=== PATIENT | male | born 1980 | race Caucasian/White ===

== ENCOUNTER → 2019-06-01 | Outpatient (CLI) | payer BC ==
[~2019-06-01] MED LIST: CETI1TAB61 PO; DEXL60CA PO; FLUO20CA42 PO; IBP800T PO; LEVO5TAB2; MONT10TA21 PO; MV-M1CAP15 PO; OMEG-109 PO; PANT40TA2 PO; SUCR1TAB36 PO
--- NOTE | 2019-06-01 10:11 | Diagnostic Imaging Report ---
PROCEDURE: CT urinary tract, rule out kidney stone. TECHNIQUE: Multiple contiguous axial images were obtained through the abdomen and pelvis without the use of intravenous contrast. Auto Exposure Controls were utilized during the CT exam to meet ALARA standards for radiation dose reduction. INDICATION: Left-sided abdominal pain for one week. COMPARISON: No prior studies are available for comparison. FINDINGS: Lung bases are clear. No focal liver mass is detected. Gallbladder is contracted. No biliary ductal dilatation is seen. Pancreas and spleen are unremarkable. No adrenal mass is detected. No renal calculi are identified. No definite ureteral calculi or hydronephrosis is identified. Aorta is non-aneurysmal. Small and large bowel loops are normal caliber. There is extensive sigmoid diverticulosis but no evidence of acute diverticulitis. There is no free fluid or fluid collection. The bladder is unremarkable. Bony structures are not acute. IMPRESSION: 1. No evidence of urinary tract calculi or obstruction. 2. Diverticulosis without evidence of acute diverticulitis. Dictated by: Dictated on workstation # [id number]
== END ==
LOC: RAD 09:53
PROVIDERS: ATTEND Family Medicine
DX: K57.30 Diverticulosis of large intestine without perforation or abscess without bleeding (principal)
CPT/HCPCS: 74176

== ENCOUNTER → 2021-09-03 | Outpatient (CLI) | payer BC | LOC: CARD 13:00 | PROVIDERS: ATTEND Family Medicine | DX: I45.4 Nonspecific intraventricular block (principal) | CPT/HCPCS: 93306 ==

== ENCOUNTER → 2022-02-03 | Outpatient (CLI) | payer BC, OTHER ==
--- NOTE | 2022-02-03 11:43 | Diagnostic Imaging Report ---
PROCEDURE: US Thyroid. TECHNIQUE: Multiple real-time grayscale images were obtained of the thyroid in various projections. INDICATION: E04.1, nontoxic single thyroid nodule. COMPARISON: None available. FINDINGS: The right lobe of the thyroid gland is enlarged measuring 6.1 x 1.9 x 1.6 cm. A solid hypoechoic nodule with smooth circumscribed margins which is wider than tall is noted within the mid to superior pole of the right thyroid lobe measuring 0.8 x 0.7 x 0.4 cm. This demonstrates increased internal vascularity. No additional right thyroid nodule. The left lobe of the thyroid gland measures 6.0 x 1.3 x 1.8 cm, which is mildly enlarged. It maintains a homogeneous echotexture without discrete nodule. The isthmus is unremarkable. IMPRESSION: 0.8 cm solid hypoechoic TI-RADS 4 nodule within the mid to superior pole of the right thyroid lobe. Given significant hypervascularity, a follow-up ultrasound of the thyroid gland is recommended in one year to reevaluate. Mild thyromegaly. Dictated by: Dictated on workstation # [id number]
== END ==
LOC: RAD 07:45
PROVIDERS: ATTEND Nurse Practitioner Family
DX: E04.1 Nontoxic single thyroid nodule (principal)
CPT/HCPCS: 76536